=== PATIENT | male | born 1940 | race African-American/Black ===

== ENCOUNTER 2018-01-24 11:15 | Emergency (ER) | payer OTHER ==
[2018-01-24 11:28] VITALS: BMI 26.6
[2018-01-24] MEDS ORDERED: ASPIRIN 81 MG CHEWABLE TABLETS PO ONE (11:33)
[2018-01-24] MEDS ORDERED: ASPIRIN 81 MG CHEWABLE TABLETS ONE (11:46)
[2018-01-24 12:05] LABS: BASO % 0.4 % (0-2.0); EOS % 1.4 % (0-4.5); HEMATOCRIT 42.8 % (35.4-49); HEMOGLOBIN 15.3 GM/dL (11.7-16.9); LYMPH % 16.6 % (8-40); MCHC 35.7 g/dl (32.0-35.9); MEAN PLT VOLUME 7.2 fl (7.5-11.1); MONO % 6.6 % (3.8-10.2); PLATELET COUNT 168 K/MM3 (134-434); RBC 4.92 M/mm3 (4.00-5.60); RDW 14.2 % (11.9-15.9); WHITE BLOOD COUNT 6.8 K/mm3 (4.0-10.0)
--- NOTE | 2018-01-24 12:06 | PDOC ---
History of Present Illness - General Chief Complaint: Chest Pain Stated Complaint: CHEST PAIN Time Seen by Provider: 01/24/18 11:33 History Source: Patient Exam Limitations: No Limitations - History of Present Illness Initial Comments: 01/24/18 12:10 [place] 77 YOM PMH of HLD, and HTN presenting with left sided burning chest pain while he was eating breakfast at 9am today. Nonradiating and nonexertional. No prodromal infectious sx. No trauma or strenuous activity. Denies tobacco or ETOH or drug use. PSHx orthopedic surgery, appendectomy. Last saw pneumatic tube fitter in [place] in February 2017, negative workup. Per pt, also has had neg stress test in pneumatic tube fitter office ~[address] Alycia Merritt Cards: Dr. Henriquez Past History - Past Medical History Allergies/Adverse Reactions: Allergies Allergy/AdvReac Type Severity Reaction Status Date / Time No Known Drug Allergies Allergy Verified 03/27/15 13:03 Home Medications: Ambulatory Orders Amlodipine Besylate [Norvasc -] 5 mg PO DAILY 02/08/15 Simvastatin [Zocor -] 40 mg PO DAILY 02/08/15 Anemia: No Asthma: No Cancer: No Cardiac Disorders: No CVA: No COPD: No CHF: No Dementia: No Diabetes: No GI Disorders: No Disorders: No HTN: Yes Hypercholesterolemia: Yes Liver Disease: No Seizures: No Thyroid Disease: No - Surgical History Appendectomy: Yes Orthopedic Surgery: Yes (right shoulder) - Suicide/Smoking/Psychosocial Hx Smoking History: Former smoker Have you smoked in the past 12 months: No If you are a former smoker, when did you quit?: 60 years ago Information on smoking cessation initiated: No Hx Alcohol Use: Yes (OCCASIONALLY) Drug/Substance Use Hx: No Substance Use Type: Alcohol Cardiac Specific PMH - Complaint Specific PMHX Pacemaker: No Review of Systems - Review of Systems Able to Perform ROS?: Yes Comments:: 01/24/18 12:10 Constitutional: no fevers or chills. HEENT: +dizziness. no headache. No congestion. No visual/hearing disturbances. CVS: +chest pain. no palpitations or syncope. Resp: no sob. No cough. Abdomen: no abdominal pain, nausea or vomiting. Genitourinary: no urinary sx, hematuria. MUSCULOSKELETAL: No joint pain and swelling. No neck or back pain. SKIN: no redness or skin changes, no discharge, no rash. No wounds. Hematologic: no easy bruising/bleeding. NEUROLOGIC: No headache, LOC or altered mental status. No weakness, numbness or tingling. All other systems reviewed and negative, or as documented in HPI. *Physical Exam - Vital Signs Last Vital Signs Temp Pulse Resp BP Pulse Ox 98.3 F 71 16 125/61 100 01/24/18 11:20 01/24/18 11:20 01/24/18 11:20 01/24/18 11:20 01/24/18 11:20 - Physical Exam Comments: 01/24/18 12:11 General: Well appearing, awake and alert, NAD. HEENT: NCAT, PERRL, EOMI, clear conjunctiva, anicteric, moist mucus membranes, clear oropharynx, no oral lesions.. Neck: neck supple, FROM, no JVD. Resp: CTAB, normal and even respirations, no respiratory distress chest: no reproducible chest tenderness. CVS: RRR, no murmurs, 2+ peripheral pulses throughout, no peripheral edema Abdomen: soft, NTND, no peritoneal signs. Back: nontender, normal inspection and ROM MSK: no edema, CHAN x4, ROM intact. No clubbing or cyanosis. normal bulk and tone. Extrem: no calf tenderness Neuro: alert, oriented appropriately; no focal neurologic deficits Skin: warm and well perfused, cap refill <2 sec, normal color Heart Score/ECG Review - History History: Slightly suspicious - Electrocardiogram EKG: Non specific repolarization disturbance - Age Age: >/= 65 - Risk Factors Risk Factors Heart Score: Yes Hx Hypercholesterolemia, Yes Hx Hypertension Based on the list above the patient has:: 1-2 risk factors - Troponin Troponin: </= normal limit - Score Heart Score - Total: 4 ED Treatment Course - LABORATORY CBC & Chemistry Diagram: 01/24/18 11:56 01/24/18 11:55 - ADDITIONAL ORDERS Additional order review: Laboratory Results 01/24/18 01/24/18 01/24/18 14:54 14:36 11:56 PT with INR 11.30 INR 0.96 PTT (Actin FS) 30.6 Sodium Potassium Chloride Carbon Dioxide Anion Gap BUN Creatinine Creat Clearance w eGFR Random Glucose Calcium Magnesium Total Bilirubin AST ALT Alkaline Phosphatase Creatine Kinase Troponin I < 0.02 Cancelled B-Natriuretic Peptide Total Protein Albumin 01/24/18 11:55 PT with INR INR PTT (Actin FS) Sodium 142 Potassium 4.0 Chloride 106 Carbon Dioxide 27 Anion Gap 9 BUN 14 Creatinine 1.4 H Creat Clearance w eGFR 48.89 Random Glucose 121 H Calcium 8.3 L Magnesium 2.2 Total Bilirubin 0.9 AST 93 H ALT 64 H Alkaline Phosphatase 102 Creatine Kinase 136 Troponin I < 0.02 B-Natriuretic Peptide 100.3 Total Protein 7.5 Albumin 3.9 01/24/18 11:56 RBC 4.92 MCV 87.0 MCHC 35.7 RDW 14.2 MPV 7.2 L Neutrophils % 75.0 D Lymphocytes % 16.6 D Monocytes % 6.6 Eosinophils % 1.4 Basophils % 0.4 - RADIOLOGY Radiology Studies Ordered: Category Date Time Status CHEST PA & LAT [RAD] Stat Radiology 01/24/18 11:33 Completed - Medications Given in the ED: ED Medications Discontinued Medications Generic Name Dose Route Start Last Admin Trade Name Freq PRN Reason Stop Dose Admin Aspirin 162 mg 01/24/18 11:33 01/24/18 11:54 Asa - PO 01/24/18 11:34 162 mg ONCE ONE Administration Medical Decision Making - Medical Decision Making 01/24/18 12:12 77 YOM with left CP, since resolved. no exertion or radiating sx. h/o HTN and HLD; denies cath or CAD. has had negative stress testing and echo per patient and prior presentation. DDx includes ACS, angina, chest pain NOS, costochondritis, GERD, pleurisy, anxiety, esophageal spasm. Low suspicion for pulmonary embolism or dissection. Vitals wnl, reassuring. EKG normal sinus rhythm, wide QRS, ST and T wave segments and morphology normal. Nonspecific T wave abnormalities, LBBB present without concordant changes. unchanged from prior HEART score 4 which denotes moderate risk/ probability for ACS, but will do 2 trops to r/o as onset of sx at 9am, if neg less likely emergent pathology or angina. Given risk factors including age, comorbidities, gender, and clinical history given ASA. labs and lytes wnl, baseline Cr elevation 1.4, unchanged. troponin negative x2, serial EKG unchanged with old LBBB neg for [place]. remains stable and well, asymptomatic and eager for discharge. currently asymptomatic, remains well appearing. lower suspicion for ACS with improving sx and more "burning" sensation. ambulatory in department, remains stable. call to Dr. Merritt, his PMD. came to see in the ED, amenable to close outpatient followup and agrees with the plan. dispo: Pt to be discharged in stable condition. Patient and family made aware of impression and plan, return precautions discussed (including but not limited to worsening pain or symptoms), fevers, or signs of infection, chest pain, respiratory distress, inability to tolerate oral intake, dehydration, syncope, or neurologic changes). Follow up with PMD and/or specialist as recommended, follow up information provided, take medications as instructed for duration of time. continue with supportive care, avoid triggers and precipitants. All questions answered to patient's satisfaction and expressed understanding and comfort with this. 01/24/18 14:05 01/24/18 15:45 *DC/Admit/Observation/Transfer Diagnosis at time of Disposition: Chest pain - Discharge Dispostion Condition at time of disposition: Improved Decision to Admit order: No - Referrals Referrals: Rhoda Merritt MD [Staff Physician] - Hector Henriquez MD [Staff Physician] - - Patient Instructions Printed Discharge Instructions: DI for Chest Pain Additional Instructions: Your laboratory / imaging results were normal, including your troponins and EKG that are unchanged. Follow up with your physician and consultants as instructed, take your medications as instructed including daily aspirin. follow up with Dr. Merritt. follow up with pneumatic tube fitter as well, Dr. Henriquez and Dr Merritt. Return if worsening symptoms including fevers, headache, vomiting, visual or hearing disturbances, abdominal pain, chest pain, shortness of breath, syncope, dehydration, inability to take things by mouth/vomiting, altered mental status, or worsening concerning symptoms. your medications on discharge include_ side effects may include upset stomach, abdominal pain, vomiting, or diarrhea. do not drink alcohol with your medications. - Post Discharge Activity
[2018-01-24 12:16] LABS: INR 0.96 (0.83-1.09); PROTHROMBIN TIME (PATIENT) 11.3 SEC (9.7-13.0)
[2018-01-24 12:19] LABS: ACTIVATED PTT 30.6 SECONDS (25.2-36.5)
--- NOTE | 2018-01-24 12:29 | EKG ---
Test Reason : Blood Pressure : / mmHG Vent. Rate : 063 BPM Atrial Rate : 063 BPM P-R Int : 166 ms QRS Dur : 152 ms QT Int : 434 ms P-R-T Axes : 041 -53 086 degrees QTc Int : 444 ms NORMAL SINUS RHYTHM POSSIBLE LEFT ATRIAL ENLARGEMENT LEFT AXIS DEVIATION LEFT BUNDLE BRANCH BLOCK ABNORMAL ECG Confirmed by ANGELIQUE REED MD ([id number]) on 01/24/2018 12:29:10 PM Referred By: Confirmed By:ANGELIQUE REED MD
[2018-01-24 12:31] LABS: ALBUMIN 3.9 g/dl (3.4-5.0); ALK PHOS 102 U/L (45-117); ANION GAP 9 MMOL/L (8-16); BILIRUBIN,TOTAL 0.9 mg/dL (0.2-1); BLOOD UREA NITROGEN 14 mg/dL (7-18); CALCIUM 8.3 mg/dL (8.5-10.1); CHLORIDE 106 mmol/L (98-107); CO2 27 mmol/L (21-32); CREATININE 1.4 mg/dL (0.55-1.3); GLUCOSE,RANDOM 121 mg/dL (74-106); MAGNESIUM 2.2 mg/dL (1.8-2.4); N-TERMINAL BNP 100.3 pg/ml (5-450); SGOT/AST 93 U/L (15-37); SGPT/ALT 64 U/L (13-61); SODIUM 142 mmol/L (136-145); TOT PROT 7.5 g/dl (6.4-8.2)
[2018-01-24 16:02] VITALS: TEMP 98.3
--- NOTE | 2018-01-25 11:44 | EKG ---
Test Reason : Blood Pressure : / mmHG Vent. Rate : 055 BPM Atrial Rate : 055 BPM P-R Int : 170 ms QRS Dur : 158 ms QT Int : 454 ms P-R-T Axes : 000 -50 024 degrees QTc Int : 434 ms SINUS BRADYCARDIA LEFT AXIS DEVIATION LEFT BUNDLE BRANCH BLOCK ABNORMAL ECG WHEN COMPARED WITH ECG OF 24-JAN-2018 11:16, T WAVE INVERSION NOW EVIDENT IN INFERIOR LEADS Confirmed by ANGELIQUE REED MD ([id number]) on 01/25/2018 11:44:22 AM Referred By: Confirmed By:ANGELIQUE REED MD
== END 2018-01-24 16:11 | disposition home or self-care (01) ==
LOC: JER 11:15
DX: R07.9 Chest pain, unspecified (principal); I10 Essential (primary) hypertension; E78.00 Pure hypercholesterolemia, unspecified; Z87.891 Personal history of nicotine dependence
CPT/HCPCS: 36415; 71046-TC-FY; 80053; 82550; 83735; 83880; 84484; 85025; 85610; 85730; 93005; 93010; 99282-25

== ENCOUNTER 2020-09-20 16:10 | Inpatient (IN) | payer OTHER ==
[2020-09-20 16:19] VITALS: BMI 26.6
[2020-09-20 18:00] LABS: BASO % 0.5 % (0-2.0); EOS % 3.3 % (0-4.5); HEMATOCRIT 33.5 % (35.4-49); HEMOGLOBIN 11.4 GM/dL (11.7-16.9); LYMPH % 22.6 % (8-40); MCH 29.4 pg (25.7-33.7); MEAN CELL VOLUME 86.3 fl (80-96); MONO % 9.1 % (3.8-10.2); NEUT % 64.5 % (42.8-82.8); PLATELET COUNT 383 10^3/uL (134-434); RBC 3.88 M/mm3 (4.00-5.60); RDW 14.8 % (11.9-15.9); WHITE BLOOD COUNT 6.8 K/mm3 (4.0-10.0)
[2020-09-20 18:14] LABS: INR 1.2 (0.83-1.09); PROTHROMBIN TIME (PATIENT) 14.5 SEC (9.7-13.0)
[2020-09-20 18:16] LABS: ACTIVATED PTT 32.2 SECONDS (25.2-36.5)
[2020-09-20] MEDS ORDERED: PANTOPRAZOLE SODIUM 40 MG VIAL IVPUSH ONE (18:39)
[2020-09-20 18:51] LABS: CALCIUM 8.6 mg/dL (8.5-10.1)
[2020-09-20 18:52] LABS: ALBUMIN 2.9 g/dl (3.4-5.0); BLOOD UREA NITROGEN 18.7 mg/dL (7-18)
[2020-09-20 18:55] LABS: CREATININE 1.2 mg/dL (0.55-1.3)
[2020-09-20 18:57] LABS: BILIRUBIN,TOTAL 0.4 mg/dL (0.2-1); TOT PROT 6.8 g/dl (6.4-8.2)
[2020-09-20] MEDS ORDERED: ENOXAPARIN NA (PORCINE) 80 MG/0.8 ML DISP.SYRIN SQ ONE ×2 (19:13→20:44)
[2020-09-21 08:03] LABS: BASO % 0.7 % (0-2.0); EOS % 4.6 % (0-4.5); HEMATOCRIT 34.7 % (35.4-49); HEMOGLOBIN 11.6 GM/dL (11.7-16.9); MCH 29.1 pg (25.7-33.7); MCHC 33.4 g/dl (32.0-35.9); MEAN CELL VOLUME 87.2 fl (80-96); MEAN PLT VOLUME 6.2 fl (7.5-11.1); MONO % 8.1 % (3.8-10.2); NEUT % 54.6 % (42.8-82.8); PLATELET COUNT 422 10^3/uL (134-434); RBC 3.98 M/mm3 (4.00-5.60); RDW 14.8 % (11.9-15.9); WHITE BLOOD COUNT 6.8 K/mm3 (4.0-10.0)
[2020-09-21 08:18] LABS: BLOOD UREA NITROGEN 18.8 mg/dL (7-18); CALCIUM 8.7 mg/dL (8.5-10.1); INR 1.24 (0.83-1.09); PROTHROMBIN TIME (PATIENT) 15.1 SEC (9.7-13.0)
[2020-09-21 08:20] LABS: ACTIVATED PTT 36.9 SECONDS (25.2-36.5)
[2020-09-21 08:22] LABS: CREATININE 1.3 mg/dL (0.55-1.3)
[2020-09-21] MEDS: ENOXAPARIN NA (PORCINE) 80 MG/0.8 ML DISP.SYRIN SQ SCH ×2 (09:13→21:13)
[2020-09-21] MEDS: amLODIPine BESYLATE 5 MG TABLET (FP) PO SCH (09:13)
[2020-09-21] MEDS: ATORVASTATIN CA 20 MG TABLET (FP) PO SCH (21:13)
[2020-09-21] MEDS ORDERED: TAMSULOSIN HCL 0.4 MG CAP PO ONE ×3 (21:54)
[2020-09-22 07:15] LABS: BASO % 0.9 % (0-2.0); EOS % 4.9 % (0-4.5); HEMATOCRIT 31.4 % (35.4-49); HEMOGLOBIN 10.9 GM/dL (11.7-16.9); LYMPH % 34.1 % (8-40); MCH 29.6 pg (25.7-33.7); MCHC 34.5 g/dl (32.0-35.9); MEAN CELL VOLUME 85.8 fl (80-96); MEAN PLT VOLUME 5.9 fl (7.5-11.1); MONO % 10.9 % (3.8-10.2); NEUT % 49.2 % (42.8-82.8); PLATELET COUNT 388 10^3/uL (134-434); RBC 3.66 M/mm3 (4.00-5.60); RDW 14.2 % (11.9-15.9); WHITE BLOOD COUNT 6.1 K/mm3 (4.0-10.0)
[2020-09-22 07:19] LABS: CALCIUM 8.2 mg/dL (8.5-10.1)
[2020-09-22 07:20] LABS: BLOOD UREA NITROGEN 17.8 mg/dL (7-18)
[2020-09-22 07:22] LABS: URIC ACID 8.9 mg/dL (2.6-7.2)
[2020-09-22 07:23] LABS: CREATININE 1.2 mg/dL (0.55-1.3)
[2020-09-22] MEDS: amLODIPine BESYLATE 5 MG TABLET (FP) PO SCH (09:26)
[2020-09-22] MEDS: APIXABAN 5 MG TABLET PO SCH ×2 (09:26→21:41)
[2020-09-22] MEDS: PANTOPRAZOLE 40 MG TABLET PO SCH (13:02)
[2020-09-22] MEDS: predniSONE 20 MG TABLET (UD) PO SCH (13:03)
[2020-09-22] MEDS: ACETAMINOPHEN 325 MG TABLET (FP) PO PRN ×2 (14:59→21:44)
[2020-09-22] MEDS: ATORVASTATIN CA 20 MG TABLET (FP) PO SCH (21:41)
[2020-09-22] MEDS: TAMSULOSIN HCL 0.4 MG CAP PO SCH (21:41)
[2020-09-23] MEDS ORDERED: TAMSULOSIN HCL 0.4 MG CAP PO SCH (08:30)
[2020-09-23] MEDS: ACETAMINOPHEN 325 MG TABLET (FP) PO PRN (08:33)
[2020-09-23 08:56] LABS: BASO % 0.3 % (0-2.0); EOS % 0.3 % (0-4.5); HEMATOCRIT 33.6 % (35.4-49); HEMOGLOBIN 11.3 GM/dL (11.7-16.9); LYMPH % 22.2 % (8-40); MCH 28.8 pg (25.7-33.7); MCHC 33.5 g/dl (32.0-35.9); MEAN PLT VOLUME 6.3 fl (7.5-11.1); MONO % 7.6 % (3.8-10.2); NEUT % 69.6 % (42.8-82.8); PLATELET COUNT 469 10^3/uL (134-434); RBC 3.91 M/mm3 (4.00-5.60); RDW 14.5 % (11.9-15.9); WHITE BLOOD COUNT 8.4 K/mm3 (4.0-10.0)
[2020-09-23 09:13] LABS: CALCIUM 8.7 mg/dL (8.5-10.1)
[2020-09-23 09:14] LABS: BLOOD UREA NITROGEN 17.8 mg/dL (7-18)
[2020-09-23 09:17] LABS: CREATININE 1.3 mg/dL (0.55-1.3)
[2020-09-23] MEDS ORDERED: PT OWN MED DRAWER 7, Y5N ONE (09:22)
[2020-09-23] MEDS: predniSONE 20 MG TABLET (UD) PO SCH (09:26)
[2020-09-23] MEDS: PANTOPRAZOLE 40 MG TABLET PO SCH (09:27)
[2020-09-23] MEDS: APIXABAN 5 MG TABLET PO SCH ×2 (09:27→21:57)
[2020-09-23] MEDS: amLODIPine BESYLATE 5 MG TABLET (FP) PO SCH (09:27)
[2020-09-23] MEDS: ATORVASTATIN CA 20 MG TABLET (FP) PO SCH (21:57)
[2020-09-23] MEDS: TAMSULOSIN HCL 0.4 MG CAP PO SCH (21:57)
[2020-09-24 08:29] LABS: BASO % 0.1 % (0-2.0); EOS % 0.2 % (0-4.5); HEMATOCRIT 33.8 % (35.4-49); HEMOGLOBIN 11.2 GM/dL (11.7-16.9); LYMPH % 21.9 % (8-40); MCH 28.6 pg (25.7-33.7); MCHC 33.2 g/dl (32.0-35.9); MEAN CELL VOLUME 86.3 fl (80-96); MEAN PLT VOLUME 6.2 fl (7.5-11.1); MONO % 7.2 % (3.8-10.2); NEUT % 70.6 % (42.8-82.8); PLATELET COUNT 488 10^3/uL (134-434); RBC 3.91 M/mm3 (4.00-5.60); RDW 14.7 % (11.9-15.9); WHITE BLOOD COUNT 10.6 K/mm3 (4.0-10.0)
[2020-09-24 08:48] LABS: BLOOD UREA NITROGEN 20.8 mg/dL (7-18); CALCIUM 8.8 mg/dL (8.5-10.1)
[2020-09-24 08:51] LABS: CREATININE 1.3 mg/dL (0.55-1.3)
[2020-09-24] MEDS: amLODIPine BESYLATE 5 MG TABLET (FP) PO SCH (09:52)
[2020-09-24] MEDS: PANTOPRAZOLE 40 MG TABLET PO SCH (09:52)
[2020-09-24] MEDS: predniSONE 20 MG TABLET (UD) PO SCH (09:52)
[2020-09-24] MEDS: APIXABAN 5 MG TABLET PO SCH ×2 (09:53→21:03)
[2020-09-24] MEDS ORDERED: predniSONE 20 MG TABLET (UD) PO SCH (13:57)
[2020-09-24] MEDS: ARTIFICIAL TEARS (POLYVINYL ALCOHOL) OPTH DROPS OU SCH ×2 (17:46→21:05)
[2020-09-24] MEDS: ACETAMINOPHEN 325 MG TABLET (FP) PO PRN (20:39)
[2020-09-24] MEDS: TAMSULOSIN HCL 0.4 MG CAP PO SCH (21:02)
[2020-09-24] MEDS: ATORVASTATIN CA 20 MG TABLET (FP) PO SCH (21:03)
[2020-09-25 07:45] LABS: CALCIUM 8.6 mg/dL (8.5-10.1)
[2020-09-25 07:46] LABS: BLOOD UREA NITROGEN 24.4 mg/dL (7-18)
[2020-09-25 07:49] LABS: CREATININE 1.3 mg/dL (0.55-1.3)
[2020-09-25 07:57] LABS: BASO % 0.2 % (0-2.0); EOS % 0.3 % (0-4.5); HEMATOCRIT 31.4 % (35.4-49); HEMOGLOBIN 11.1 GM/dL (11.7-16.9); LYMPH % 22.3 % (8-40); MCH 30.3 pg (25.7-33.7); MCHC 35.3 g/dl (32.0-35.9); MEAN CELL VOLUME 85.9 fl (80-96); NEUT % 70.2 % (42.8-82.8); PLATELET COUNT 485 10^3/uL (134-434); RBC 3.66 M/mm3 (4.00-5.60); RDW 14.7 % (11.9-15.9); WHITE BLOOD COUNT 10.6 K/mm3 (4.0-10.0)
[2020-09-25] MEDS: APIXABAN 5 MG TABLET PO SCH ×2 (09:25→21:02)
[2020-09-25] MEDS: predniSONE 20 MG TABLET (UD) PO SCH (09:25)
[2020-09-25] MEDS: PANTOPRAZOLE 40 MG TABLET PO SCH (09:26)
[2020-09-25] MEDS: amLODIPine BESYLATE 5 MG TABLET (FP) PO SCH (09:26)
[2020-09-25] MEDS: ARTIFICIAL TEARS (POLYVINYL ALCOHOL) OPTH DROPS OU SCH ×2 (09:27→21:01)
[2020-09-25] MEDS ORDERED: CODEINE SO4 30 MG TABLET PO PRN (12:10)
[2020-09-25] MEDS: ATORVASTATIN CA 20 MG TABLET (FP) PO SCH (21:02)
[2020-09-25] MEDS: TAMSULOSIN HCL 0.4 MG CAP PO SCH (21:02)
[2020-09-26] MEDS ORDERED: PT OWN MED DRAWER 7, Y5N ONE (09:56)
[2020-09-26] MEDS: predniSONE 20 MG TABLET (UD) PO SCH (09:58)
[2020-09-26] MEDS: APIXABAN 5 MG TABLET PO SCH ×2 (09:59→21:19)
[2020-09-26] MEDS: amLODIPine BESYLATE 5 MG TABLET (FP) PO SCH (09:59)
[2020-09-26] MEDS: PANTOPRAZOLE 40 MG TABLET PO SCH (10:00)
[2020-09-26] MEDS: ARTIFICIAL TEARS (POLYVINYL ALCOHOL) OPTH DROPS OU SCH ×2 (10:00→21:19)
[2020-09-26] MEDS: ATORVASTATIN CA 20 MG TABLET (FP) PO SCH (21:19)
[2020-09-26] MEDS: TAMSULOSIN HCL 0.4 MG CAP PO SCH (21:19)
[2020-09-27] MEDS: amLODIPine BESYLATE 5 MG TABLET (FP) PO SCH (11:58)
[2020-09-27] MEDS: predniSONE 20 MG TABLET (UD) PO SCH (11:59)
[2020-09-27] MEDS: PANTOPRAZOLE 40 MG TABLET PO SCH (11:59)
[2020-09-27] MEDS: APIXABAN 5 MG TABLET PO SCH ×2 (12:00→21:16)
[2020-09-27] MEDS: ARTIFICIAL TEARS (POLYVINYL ALCOHOL) OPTH DROPS OU SCH ×2 (12:02→21:17)
[2020-09-27] MEDS ORDERED: traMADol HCL 50 MG TABLET PO PRN (13:21)
[2020-09-27] MEDS: METHYL SALICYLATE/MENTHOL OINT 30 GM TUBE TP SCH ×2 (15:25→21:17)
[2020-09-27] MEDS: TAMSULOSIN HCL 0.4 MG CAP PO SCH (21:17)
[2020-09-27] MEDS: ATORVASTATIN CA 20 MG TABLET (FP) PO SCH (21:17)
[2020-09-28 08:57] LABS: BASO % 0.3 % (0-2.0); EOS % 0.2 % (0-4.5); HEMATOCRIT 36.9 % (35.4-49); HEMOGLOBIN 12.5 GM/dL (11.7-16.9); LYMPH % 27.3 % (8-40); MCH 29.7 pg (25.7-33.7); MEAN CELL VOLUME 87.3 fl (80-96); MEAN PLT VOLUME 6.3 fl (7.5-11.1); MONO % 6.3 % (3.8-10.2); NEUT % 65.9 % (42.8-82.8); PLATELET COUNT 474 10^3/uL (134-434); RBC 4.22 M/mm3 (4.00-5.60); RDW 15.3 % (11.9-15.9); WHITE BLOOD COUNT 9.3 K/mm3 (4.0-10.0)
[2020-09-28] MEDS ORDERED: PT OWN MED DRAWER 7, Y5N ONE (09:35)
[2020-09-28] MEDS: PANTOPRAZOLE 40 MG TABLET PO SCH (09:45)
[2020-09-28] MEDS: ARTIFICIAL TEARS (POLYVINYL ALCOHOL) OPTH DROPS OU SCH ×2 (09:45→21:23)
[2020-09-28] MEDS: predniSONE 20 MG TABLET (UD) PO SCH (09:45)
[2020-09-28] MEDS: APIXABAN 5 MG TABLET PO SCH ×2 (09:45→21:22)
[2020-09-28] MEDS: amLODIPine BESYLATE 5 MG TABLET (FP) PO SCH (09:45)
[2020-09-28] MEDS: METHYL SALICYLATE/MENTHOL OINT 30 GM TUBE TP SCH ×2 (09:46→21:23)
[2020-09-28 09:49] LABS: CALCIUM 8.8 mg/dL (8.5-10.1)
[2020-09-28 09:52] LABS: CREATININE 1.2 mg/dL (0.55-1.3)
[2020-09-28] MEDS: ATORVASTATIN CA 20 MG TABLET (FP) PO SCH (21:22)
[2020-09-28] MEDS: TAMSULOSIN HCL 0.4 MG CAP PO SCH (21:22)
[2020-09-29] MEDS: predniSONE 20 MG TABLET (UD) PO SCH (09:43)
[2020-09-29] MEDS: APIXABAN 5 MG TABLET PO SCH ×2 (09:43→22:39)
[2020-09-29] MEDS: PANTOPRAZOLE 40 MG TABLET PO SCH (09:46)
[2020-09-29] MEDS: amLODIPine BESYLATE 5 MG TABLET (FP) PO SCH (09:46)
[2020-09-29] MEDS: ARTIFICIAL TEARS (POLYVINYL ALCOHOL) OPTH DROPS OU SCH ×2 (09:47→22:39)
[2020-09-29] MEDS: METHYL SALICYLATE/MENTHOL OINT 30 GM TUBE TP SCH ×2 (09:48→22:40)
[2020-09-29] MEDS: ATORVASTATIN CA 20 MG TABLET (FP) PO SCH (22:39)
[2020-09-29] MEDS: TAMSULOSIN HCL 0.4 MG CAP PO SCH (22:39)
[2020-09-30] MEDS: METHYL SALICYLATE/MENTHOL OINT 30 GM TUBE TP SCH ×2 (09:40→21:36)
[2020-09-30] MEDS: APIXABAN 5 MG TABLET PO SCH ×2 (09:40→21:36)
[2020-09-30] MEDS: amLODIPine BESYLATE 5 MG TABLET (FP) PO SCH (09:40)
[2020-09-30] MEDS: predniSONE 20 MG TABLET (UD) PO SCH (09:40)
[2020-09-30] MEDS: PANTOPRAZOLE 40 MG TABLET PO SCH (09:40)
[2020-09-30] MEDS: ARTIFICIAL TEARS (POLYVINYL ALCOHOL) OPTH DROPS OU SCH ×2 (09:41→21:36)
[2020-09-30] MEDS ORDERED: traMADol HCL 50 MG TABLET PO PRN (10:22)
[2020-09-30] MEDS: ATORVASTATIN CA 20 MG TABLET (FP) PO SCH (21:36)
[2020-09-30] MEDS: TAMSULOSIN HCL 0.4 MG CAP PO SCH (21:36)
[2020-10-01 07:53] LABS: CALCIUM 8.6 mg/dL (8.5-10.1)
[2020-10-01 07:54] LABS: BLOOD UREA NITROGEN 23.6 mg/dL (7-18)
[2020-10-01 07:57] LABS: CREATININE 1.4 mg/dL (0.55-1.3)
[2020-10-01 07:59] LABS: BASO % 0.2 % (0-2.0); EOS % 0.5 % (0-4.5); HEMATOCRIT 39.9 % (35.4-49); HEMOGLOBIN 13.2 GM/dL (11.7-16.9); LYMPH % 29.2 % (8-40); MCHC 33.1 g/dl (32.0-35.9); MEAN CELL VOLUME 87.7 fl (80-96); MEAN PLT VOLUME 6.7 fl (7.5-11.1); MONO % 7.1 % (3.8-10.2); PLATELET COUNT 387 10^3/uL (134-434); RBC 4.56 M/mm3 (4.00-5.60); RDW 16.1 % (11.9-15.9); WHITE BLOOD COUNT 9.5 K/mm3 (4.0-10.0)
[2020-10-01] MEDS ORDERED: PT OWN MED DRAWER 7, Y5N ONE (09:19)
[2020-10-01] MEDS: amLODIPine BESYLATE 5 MG TABLET (FP) PO SCH (09:23)
[2020-10-01] MEDS: predniSONE 10 MG TABLET (UD) PO SCH (09:23)
[2020-10-01] MEDS: APIXABAN 5 MG TABLET PO SCH ×2 (09:23→22:09)
[2020-10-01] MEDS: METHYL SALICYLATE/MENTHOL OINT 30 GM TUBE TP SCH (09:23)
[2020-10-01] MEDS: ARTIFICIAL TEARS (POLYVINYL ALCOHOL) OPTH DROPS OU SCH ×2 (09:23→22:08)
[2020-10-01] MEDS: PANTOPRAZOLE 40 MG TABLET PO SCH (09:23)
[2020-10-01] MEDS: TAMSULOSIN HCL 0.4 MG CAP PO SCH (22:09)
[2020-10-01] MEDS: ATORVASTATIN CA 20 MG TABLET (FP) PO SCH (22:09)
[2020-10-01] MEDS: ACETAMINOPHEN 325 MG TABLET (FP) PO PRN (22:10)
[2020-10-02] MEDS: METHYL SALICYLATE/MENTHOL OINT 30 GM TUBE TP SCH ×3 (08:16→22:06)
[2020-10-02 09:46] LABS: BASO % 0.3 % (0-2.0); EOS % 1.5 % (0-4.5); HEMATOCRIT 40.5 % (35.4-49); HEMOGLOBIN 13.5 GM/dL (11.7-16.9); LYMPH % 34.6 % (8-40); MCH 29.3 pg (25.7-33.7); MCHC 33.3 g/dl (32.0-35.9); MEAN CELL VOLUME 87.9 fl (80-96); MEAN PLT VOLUME 6.6 fl (7.5-11.1); MONO % 6.5 % (3.8-10.2); NEUT % 57.1 % (42.8-82.8); PLATELET COUNT 341 10^3/uL (134-434); RDW 16.5 % (11.9-15.9)
[2020-10-02 10:03] LABS: CALCIUM 8.5 mg/dL (8.5-10.1)
[2020-10-02 10:07] LABS: CREATININE 1.4 mg/dL (0.55-1.3)
[2020-10-02] MEDS ORDERED: PT OWN MED DRAWER 7, Y5N ONE (10:15)
[2020-10-02] MEDS: predniSONE 10 MG TABLET (UD) PO SCH (10:18)
[2020-10-02] MEDS: amLODIPine BESYLATE 5 MG TABLET (FP) PO SCH (10:18)
[2020-10-02] MEDS: ARTIFICIAL TEARS (POLYVINYL ALCOHOL) OPTH DROPS OU SCH ×2 (10:18→22:06)
[2020-10-02] MEDS: PANTOPRAZOLE 40 MG TABLET PO SCH (10:18)
[2020-10-02] MEDS: APIXABAN 5 MG TABLET PO SCH ×2 (10:18→22:05)
[2020-10-02] MEDS ORDERED: predniSONE 5 MG TABLET (UD) PO SCH (19:39)
[2020-10-02] MEDS: ATORVASTATIN CA 20 MG TABLET (FP) PO SCH (22:05)
[2020-10-02] MEDS: TAMSULOSIN HCL 0.4 MG CAP PO SCH (22:05)
[2020-10-03] MEDS: APIXABAN 5 MG TABLET PO SCH (09:08)
[2020-10-03] MEDS: amLODIPine BESYLATE 5 MG TABLET (FP) PO SCH (09:08)
[2020-10-03] MEDS: PANTOPRAZOLE 40 MG TABLET PO SCH (09:09)
[2020-10-03] MEDS: ARTIFICIAL TEARS (POLYVINYL ALCOHOL) OPTH DROPS OU SCH (09:09)
[2020-10-03] MEDS: METHYL SALICYLATE/MENTHOL OINT 30 GM TUBE TP SCH (09:10)
[2020-10-03] MEDS: ACETAMINOPHEN 325 MG TABLET (FP) PO PRN (13:08)
[2020-10-03 15:43] VITALS: BP 151/67; PULSE 76; TEMP 97.8
== END 2020-10-03 19:28 | disposition home health service (06) | DRG 301 ==
LOC: JER 16:10 → JERBED 17:49 → J8W 23:45 → OBSVTOIN 09-22 08:44 → INTOOBSV 09-22 08:44
PROVIDERS: ADMIT Hospitalist; ATTEND Internal Medicine
DX: I82.412 Acute embolism and thrombosis of left femoral vein (principal); E78.5 Hyperlipidemia, unspecified; I10 Essential (primary) hypertension; D64.9 Anemia, unspecified; M10.9 Gout, unspecified; N18.30 Chronic kidney disease, stage 3 unspecified; M25.562 Pain in left knee
CPT/HCPCS: 36415; 73562-TC-LT-FY; 80048; 80053; 82784; 84153; 84155; 84165; 84550; 85025; 85610; 85730; 86140; 86334; 86850; 86900; 86901; 93005; 93010; 97116-GP; 97161-GP; 99285-25; C9803; G0378; U0003; U0005